=== PATIENT | female | born 1995 | race African-American/Black ===

== ENCOUNTER 2018-12-09 17:30 | Emergency (ER) | payer SELFPAY ==
[~2018-12-09] VITALS: Ht 165.1 cm; Wt 57.8 kg
[~2018-12-09 17:30] MED LIST: CYCL10TA7 PO; NAPR-985 PO
[2018-12-09 17:38] VITALS: Ht 165.1 cm; Wt 57.8 kg
[2018-12-09] MEDS ORDERED: IBUPROFEN 600 MG TAB PO ONE (19:30)
[2018-12-09 20:30] VITALS: BP 102/62; PULSE 67; RESP 18
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
== END 2018-12-09 20:30 | disposition home or self-care (01) ==
LOC: FTE 17:30
DX: S13.4XXA Sprain of ligaments of cervical spine, initial encounter (principal); F17.210 Nicotine dependence, cigarettes, uncomplicated; V86.19XA Passenger of other special all-terrain or other off-road motor vehicle injured in traffic accident, initial encounter
CPT/HCPCS: 72040